=== PATIENT | male | born 1995 | race Caucasian/White ===

== ENCOUNTER 2019-06-11 17:39 | Day surgery (SDC) | payer BC ==
[2019-06-11] MEDS ORDERED: Sodium Chloride 0.9% 10 ML Syringe FLUSH PRN (19:03)
[2019-06-11] MEDS ORDERED: Sodium Chloride 0.9% 1,000 ML IV ONE (19:05)
--- NOTE | 2019-06-11 19:22 | EDM.PDOC ---
ED HPI GENERAL MEDICAL PROBLEM - General Chief Complaint: Abdominal Pain Stated Complaint: ABDOMINAL PAIN Time Seen by Provider: 06/11/19 18:21 Source of Information: Reports: Patient, RN Notes Reviewed History Limitations: Reports: No Limitations - History of Present Illness INITIAL COMMENTS - FREE TEXT/NARRATIVE: Patient is a 24-year-old male who presents to the ED for the evaluation of right -sided abdominal pain. The patient notes that this pain started at around 3 AM this morning. She notes that the pain started just above his bellybutton, and has now settled into his right lower quadrant. He did go to the walk-in clinic for evaluation, and they did an ultrasound and some lab work, but told him there was nothing wrong. Patient states he still not been able to eat or drink much throughout the day. He denies any fevers or chills, he has a little bit of nausea, but no vomiting or diarrhea, his last good bowel movement was around 3 AM this morning. He states that the abdominal pain has been there all day, and worsens with deep breathing and/or moving. He notes that the pain does feel worse now than it was earlier today. He notes the pain to be sharp and stabbing in nature, but a dull ache is there at all times. He states that he also feels bloated, and this is not normal for him. He denies any sort of abdominal surgeries. He states his last meal was a bowl of cereal at around 11 AM this morning. Patient notes that he is a social drinker, but denies any cigarette or other drug use. Patient's ultrasound report from [facility] demonstrated a positive sonographic Jasmine sign, but no signs of cholecystitis metabolic panel was remotely unremarkable, he had a mildly elevated glucose of 116. Lipase was done and was within normal limits. White blood cell count was mildly elevated at 11.4, with 9.4 (82.6%) neutrophils noted, this was done by manual differential. He denies any history of heartburn, GERD, or ulcers, but states that he has had lots of belching today as well. Right Upper Abdominal Pain Score (Numeric/FACES): 7 - Related Data Allergies Allergy/AdvReac Type Severity Reaction Status Date / Time No Known Allergies Allergy Verified 06/11/19 18:14 Home Meds: Home Meds . [No Known Home Meds] 06/11/19 [History] Social & Family History - Tobacco Use Smoking Status *Q: Never Smoker - Caffeine Use Caffeine Use: Reports: Coffee, Energy Drinks, Soda, Tea - Recreational Drug Use Recreational Drug Use: No ED ROS GENERAL - Review of Systems Review Of Systems: See Below Constitutional: Reports: Decreased Appetite. Denies: Fever, Chills HEENT: Reports: No Symptoms Respiratory: Denies: Shortness of Breath, Cough Cardiovascular: Denies: Chest Pain Endocrine: Reports: No Symptoms GI/Abdominal: Reports: Abdominal Pain (RLQ), Decreased Appetite, Nausea. Denies : Black Stool, Bloody Stool, Constipation, Diarrhea, Vomiting : Denies: Dysuria, Flank Pain, Frequency, Urgency Musculoskeletal: Reports: No Symptoms Skin: Reports: No Symptoms Neurological: Reports: No Symptoms Psychiatric: Reports: No Symptoms ED EXAM, GI/ABD - Physical Exam Exam: See Below Exam Limited By: No Limitations General Appearance: Alert, WD/WN, No Apparent Distress Eyes: Bilateral: Normal Appearance, EOMI Throat/Mouth: Normal Inspection, Normal Lips, Normal Teeth, Normal Gums, Normal Oropharynx, Normal Voice, No Airway Compromise Head: Atraumatic Neck: Normal Inspection Respiratory/Chest: No Respiratory Distress, Lungs Clear, Normal Breath Sounds, No Accessory Muscle Use, Chest Non-Tender Cardiovascular: Normal Peripheral Pulses, Regular Rate, Rhythm, No Edema, No Murmur GI/Abdominal Exam: Normal Bowel Sounds, Soft, No Distention (pt feels bloated, but has obese body habitus, and is hard to appreciate any sort of obvious abdominal distension.), No Mass, Tender (RLQ, McBurney point positive, Jasmine sign negative). No: Rigid, Rebound Extremities: Normal Inspection, Normal Capillary Refill Neurological: Alert, Oriented, Normal Cognition, No Motor/Sensory Deficits Psychiatric: Normal Affect, Normal Mood Skin Exam: Warm, Dry, Intact, Normal Color, No Rash Course - Vital Signs Last Recorded V/S: Last Vital Signs Temp 98.2 F 06/11/19 18:09 Pulse 82 06/11/19 18:09 Resp 18 06/11/19 18:09 BP 137/73 06/11/19 18:09 Pulse Ox 99 06/11/19 18:09 - Orders/Labs/Meds Orders: Active Orders 24 hr Category Date Time Status Notify Provider Consults [RC] ASDIRECTED Care 06/11/19 21:03 Ordered Peripheral IV Care [RC] . DIRECTED Care 06/11/19 19:03 Ordered Consult to Physician [CONS] Stat Cons 06/11/19 21:01 Ordered Sodium Chloride 0.9% [Saline Flush] Med 06/11/19 19:03 Ordered 10 ml FLUSH ASDIRECTED PRN Peripheral IV Insertion Adult [OM.PC] Routine Oth 06/11/19 19:03 Ordered Medication Orders Sodium Chloride (Saline Flush) 10 ml FLUSH ASDIRECTED PRN PRN Reason: Keep Vein Open Last Admin: 06/11/19 19:20 Dose: 10 ml Labs: Laboratory Tests 06/11/19 Range/Units 19:18 Urine Color Light yellow (Yellow) Urine Appearance Clear (Clear) Urine pH 7.5 (5.0-8.0) Ur Specific [place] 1.020 (1.005-1.030) Urine Protein Negative (Negative) Urine Glucose (UA) Negative (Negative) Urine Ketones Negative (Negative) Urine Occult Blood Negative (Negative) Urine Nitrite Negative (Negative) Urine Bilirubin Negative (Negative) Urine Urobilinogen 0.2 (0.2-1.0) Ur Leukocyte Esterase Negative (Negative) Urine RBC 0-5 (0-5) /hpf Urine WBC 0-5 (0-5) /hpf Ur Squamous Epith Cells 0-5 (0-5) /hpf Urine Bacteria Few (FEW) /hpf Urine Mucus Not seen (FEW) /hpf Meds: Medications Generic Name Dose Route Start Last Admin Trade Name Freq PRN Reason Stop Dose Admin Sodium Chloride 10 ml 06/11/19 19:03 06/11/19 19:20 Saline Flush FLUSH 10 ml ASDIRECTED PRN Administration Keep Vein Open Discontinued Medications Generic Name Dose Route Start Last Admin Trade Name Freq PRN Reason Stop Dose Admin Diatrizoate Meglum/Diatrizoate Sod 120 ml 06/11/19 19:35 06/11/19 20:27 Gastrografin 37% PO 06/11/19 19:36 120 ml ONETIME ONE Administration Sodium Chloride 1,000 mls @ 500 mls/hr 06/11/19 19:05 06/11/19 19:20 Normal Saline IV 06/11/19 21:04 500 mls/hr ONETIME ONE Administration Piperacillin Sod/Tazobactam 100 mls @ 200 mls/hr 06/11/19 21:07 06/11/19 21: 20 Sod 4.5 gm/ Sodium Chloride IV 06/11/19 21:36 200 mls/hr ONETIME ONE Administration Iopamidol 100 ml 06/11/19 19:34 06/11/19 20:27 Isovue-300 (61%) IVPUSH 06/11/19 19:35 100 ml ONETIME ONE Administration - Re-Assessments/Exams Free Text/Narrative Re-Assessment/Exam: 06/11/19 19:26 Patient presents to the ED for the evaluation of right lower quadrant abdominal pain. He states the pain is worsening, not getting much better. I did offer to do an abdominal CT, and he would like a CT done to rule out appendicitis versus anything else that might be more worrisome. I did also order urinalysis for evaluation. I will not reorder labs at this time, as stated in the HPI, patient's white blood cell count is mildly elevated with 9.4 (82.6%) neutrophils , which could suggest a left shift. 06/11/19 21:[address] is resulted, and demonstrates an appendix is mildly prominent in size at 1.1 cm. The mall inflammatory change around the appendix. Findings are suspicious for very early appendicitis. Also a small hiatal hernia with no additional abnormality seen on the CT study was appreciated. Dr. Guajardo, surgeon professional nursing assistant is in surgery, and has been notified to come to the ER for evaluation of this patient when he is done. I will start him on IV Zosyn for initial management. 06/11/19 22:06 Dr. Guajardo is out of surgery, and is in to evaluate the patient at this time. Departure - Departure Time of Disposition: 21:05 Disposition: DC/Tfer to [facility] Condition: Fair Clinical Impression: Appendicitis Qualifiers: Appendicitis type: acute appendicitis Acute appendicitis type: with localized peritonitis Appendicitis gangrene presence: without gangrene Appendicitis perforation presence: without perforation Appendicitis abscess presence: without abscess Qualified Code(s): K35.30 - Acute appendicitis with localized peritonitis, without perforation or gangrene - Discharge Information *PRESCRIPTION DRUG MONITORING PROGRAM REVIEWED*: No *COPY OF PRESCRIPTION DRUG MONITORING REPORT IN PATIENT FIDE: No Referrals: PCP,None [Primary Care Provider] - Forms: ED Department Discharge - My Orders Last 24 Hours: My Active Orders 06/11/19 19:03 Peripheral IV Care [RC] . DIRECTED Sodium Chloride 0.9% [Saline Flush] 10 ml FLUSH ASDIRECTED PRN Peripheral IV Insertion Adult [OM.PC] Routine 06/11/19 21:01 Consult to Physician [CONS] Stat 06/11/19 21:03 Notify Provider Consults [RC] ASDIRECTED - Assessment/Plan Last 24 Hours: My Active Orders 06/11/19 19:03 Peripheral IV Care [RC] . DIRECTED Sodium Chloride 0.9% [Saline Flush] 10 ml FLUSH ASDIRECTED PRN Peripheral IV Insertion Adult [OM.PC] Routine 06/11/19 21:01 Consult to Physician [CONS] Stat 06/11/19 21:03 Notify Provider Consults [RC] ASDIRECTED
[2019-06-11] MEDS ORDERED: Iopamidol 612 MG/ML 100 ML Bottle IVPUSH ONE (19:34)
[2019-06-11] MEDS ORDERED: Diatrizoate Meglumine/Diatrizoate Sodium 37% 120 ML Bottle PO ONE (19:35)
--- NOTE | 2019-06-11 20:53 | CT ---
CT abdomen and pelvis Technique: Multiple axial sections were obtained from above the dome of the diaphragm inferiorly through the pubic symphysis. Intravenous and oral contrast was given. Delayed images were obtained through the bladder. Comparison: No prior abdominal imaging. Findings: Visualized lung bases show nothing acute. Liver contains no focal abnormality. Spleen appears within normal limits. Small hiatal hernia is noted. Adrenal glands show no nodule. Pancreas appears within normal limits. Gallbladder contains no calcified gallstones. Kidneys show symmetric contrast enhancement without hydronephrosis or mass. Aorta shows no aneurysm. No retroperitoneal adenopathy or mesenteric abnormalities are seen. No pelvic mass or adenopathy is seen. Appendix is mildly prominent in size at 1.1 cm. There may be minimal inflammatory change around the appendix. Findings are suspicious for very early appendicitis. No other inflammatory change is seen. No free fluid is seen. Delayed images shows contrast within the distal ureters and within the bladder. Bone window settings were reviewed which appear within normal limits for the patient's age. Impression: 1. Mildly prominent appendix with very slight surrounding inflammatory change suggesting very early appendicitis. 2. Small hiatal hernia with no additional abnormality being seen on CT study of the abdomen and pelvis. Diagnostic code #5
[2019-06-11] MEDS ORDERED: Piperacillin/Tazobactam 4.5 GM in Sodium Chloride 0.9% 100 ML IV ONE (21:07)
--- NOTE | 2019-06-11 22:25 | PCM.CONS ---
H&P History of Present Illness - General Date of Service: 06/11/19 Source of Information: Patient History Limitations: Reports: No Limitations - History of Present Illness Initial Comments - Free Text/Narative: Patient started having periumbilical abdominal pain at 3 am today. The pain worsened during the day. it was 7/10. associated with nausea. He went to walk in clinic where work up for gallbladder was negative and the patient was discharged. The pain worsened and the patient presented to the ED where the Ct a /p revealed acute appendicitis. Onset of Symptoms: Reports: Today Duration of Symptoms: Reports: Getting Worse Location: Reports: Abdomen Quality: Reports: Sharp Severity: Severe Improves with: Reports: Immobilization Worsens with: Reports: Movement Associated Symptoms: Reports: Nausea/Vomiting Right Upper Abdominal Pain Score (Numeric/FACES): 7 - Related Data Allergies/Adverse Reactions: Allergies Allergy/AdvReac Type Severity Reaction Status Date / Time No Known Allergies Allergy Verified 06/11/19 18:14 Home Medications: Home Meds . [No Known Home Meds] 06/11/19 [History] Social & Family History - Tobacco Use Smoking Status *Q: Never Smoker - Caffeine Use Caffeine Use: Reports: Coffee, Energy Drinks, Soda, Tea - Recreational Drug Use Recreational Drug Use: No H&P Review of Systems - Review of Systems: Review Of Systems: See Below General: Reports: No Symptoms HEENT: Reports: No Symptoms Pulmonary: Reports: No Symptoms Cardiovascular: Reports: No Symptoms Gastrointestinal: Reports: Abdominal Pain Genitourinary: Reports: No Symptoms Musculoskeletal: Reports: No Symptoms Skin: Reports: No Symptoms Psychiatric: Reports: No Symptoms Neurological: Reports: No Symptoms Exam - Exam Exam: See Below - Vital Signs Vital Signs: Last Vital Signs Temp 98.2 F 06/11/19 18:09 Pulse 82 06/11/19 18:09 Resp 18 06/11/19 18:09 BP 137/73 06/11/19 18:09 Pulse Ox 99 06/11/19 18:09 Weight: 158.757 kg - Exam General: Alert, Oriented, Cooperative, Mild Distress HEENT: Conjunctiva Clear Lungs: Clear to Auscultation, Normal Respiratory Effort Cardiovascular: Regular Rate, Regular Rhythm, Normal S1, Normal S2 GI/Abdominal Exam: Soft, No Distention, No Mass, Tender (RLQ) (Male) Exam: No Hernia - Patient Data Lab Results Last 24 hrs: Laboratory Results - last 24 hr 06/11/19 Range/Units 19:18 Urine Color Light yellow (Yellow) Urine Appearance Clear (Clear) Urine pH 7.5 (5.0-8.0) Ur Specific [place] 1.020 (1.005-1.030) Urine Protein Negative (Negative) Urine Glucose (UA) Negative (Negative) Urine Ketones Negative (Negative) Urine Occult Blood Negative (Negative) Urine Nitrite Negative (Negative) Urine Bilirubin Negative (Negative) Urine Urobilinogen 0.2 (0.2-1.0) Ur Leukocyte Esterase Negative (Negative) Urine RBC 0-5 (0-5) /hpf Urine WBC 0-5 (0-5) /hpf Ur Squamous Epith Cells 0-5 (0-5) /hpf Urine Bacteria Few (FEW) /hpf Urine Mucus Not seen (FEW) /hpf Consult PN Assessment/Plan Procedures: Procedures COMPLETE CBC W/AUTO DIFF WBC (12/29/17) COMPREHEN METABOLIC PANEL (12/29/17) GLYCOSYLATED HEMOGLOBIN TEST (12/29/17) ROUTINE VENIPUNCTURE (12/29/17) X-RAY EXAM OF FOOT (03/23/15) Problem List Initiated/Reviewed/Updated: No Plan: Acute appendicitis. I recommended appendectomy. I discussed with the patient risks, benefits and alternatives. Risks discussed include but not limited to injury to the rest of the adjacent structures, bleeding, infection, wound complications, reaction to medications. The patient agreed to proceed and informed consent was obtained. We will plan for laparoscopic appendectomy, possible open.
[2019-06-11] MEDS ORDERED: Lidocaine 1% 30 ML SDV ONE (22:49)
--- NOTE | 2019-06-11 22:56 | PCM.PREANE ---
Preanesthetic Assessment - Anesthesia/Transfusion/Family Hx Anesthesia History: No Prior Anesthesia Family History of Anesthesia Reaction: No Transfusion History: No Prior Transfusion(s) Intubation History: Unknown - Review of Systems General: No Symptoms Pulmonary: No Symptoms Cardiovascular: No Symptoms Gastrointestinal: No Symptoms Neurological: No Symptoms Other: Reports: None - Physical Assessment NPO Status Date: 06/11/19 NPO Status Time: 11:00 Vital Signs: Last Vital Signs Temp 98.2 F 06/11/19 18:09 Pulse 82 06/11/19 18:09 Resp 18 06/11/19 18:09 BP 137/73 06/11/19 18:09 Pulse Ox 99 06/11/19 18:09 Height: 1.83 m Weight: 158.757 kg ASA Class: 2E Mental Status: Alert & Oriented x3 Airway Class: Mallampati = 2 Dentition: Reports: Normal Dentition Thyro-Mental Finger Breadths: 3 Mouth Opening Finger Breadths: 3 ROM/Head Extension: Full Lungs: Clear to Auscultation Cardiovascular: Regular Rate - Lab Values: Laboratory Last Values Urine Color Light yellow (Yellow) 06/11/19 19:18 Urine Appearance Clear (Clear) 06/11/19 19:18 Urine pH 7.5 (5.0-8.0) 06/11/19 19:18 Ur Specific [place] 1.020 (1.005-1.030) 06/11/19 19:18 Urine Protein Negative (Negative) 06/11/19 19:18 Urine Glucose (UA) Negative (Negative) 06/11/19 19:18 Urine Ketones Negative (Negative) 06/11/19 19:18 Urine Occult Blood Negative (Negative) 06/11/19 19:18 Urine Nitrite Negative (Negative) 06/11/19 19:18 Urine Bilirubin Negative (Negative) 06/11/19 19:18 Urine Urobilinogen 0.2 (0.2-1.0) 06/11/19 19:18 Ur Leukocyte Esterase Negative (Negative) 06/11/19 19:18 Urine RBC 0-5 /hpf (0-5) 06/11/19 19:18 Urine WBC 0-5 /hpf (0-5) 06/11/19 19:18 Ur Squamous Epith Cells 0-5 /hpf (0-5) 06/11/19 19:18 Urine Bacteria Few /hpf (FEW) 06/11/19 19:18 Urine Mucus Not seen /hpf (FEW) 06/11/19 19:18 - Allergies Allergies/Adverse Reactions: Allergies Allergy/AdvReac Type Severity Reaction Status Date / Time No Known Allergies Allergy Verified 06/11/19 18:14 - Anesthesia Plan Pre-Op Medication Ordered: None - Acknowledgements Anesthesia Type Planned: General Anesthesia Pt an Appropriate Candidate for the Planned Anesthesia: Yes Alternatives and Risks of Anesthesia Discussed w Pt/Guardian: Yes Pt/Guardian Understands and Agrees with Anesthesia Plan: Yes PreAnesthesia Questionnaire Respiratory History: Reports: Sleep Apnea (apparent but undiagnosed) Endocrine/Metabolic History: Reports: Obesity/BMI 30+ (Morbid Obesity BMI 47.5) - SUBSTANCE USE Smoking Status *Q: Never Smoker Recreational Drug Use History: No - HOME MEDS Home Medications: Home Meds . [No Known Home Meds] 06/11/19 [History] - CURRENT (IN HOUSE) MEDS Current Meds: Current Medications Sodium Chloride (Saline Flush) 10 ml FLUSH ASDIRECTED PRN PRN Reason: Keep Vein Open Last Admin: 06/11/19 19:20 Dose: 10 ml Discontinued Medications Diatrizoate Meglum/Diatrizoate Sod (Gastrografin 37%) 120 ml PO ONETIME ONE Stop: 06/11/19 19:36 Last Admin: 06/11/19 20:27 Dose: 120 ml Sodium Chloride (Normal Saline) 1,000 mls @ 500 mls/hr IV ONETIME ONE Stop: 06/11/19 21:04 Last Admin: 06/11/19 19:20 Dose: 500 mls/hr Piperacillin Sod/Tazobactam (Sod 4.5 gm/ Sodium Chloride) 100 mls @ 200 mls/hr IV ONETIME ONE Stop: 06/11/19 21:36 Last Admin: 06/11/19 21:20 Dose: 200 mls/hr Iopamidol (Isovue-300 (61%)) 100 ml IVPUSH ONETIME ONE Stop: 06/11/19 19:35 Last Admin: 06/11/19 20:27 Dose: 100 ml Lidocaine HCl (Xylocaine-Mpf 1%) Confirm Administered Dose 30 ml .ROUTE .STK- MED ONE Stop: 06/11/19 22:50
[2019-06-11] MEDS ORDERED: cefOXitin 1 GM in Premix Bag 1 BAG IV ONE (23:02)
[2019-06-11] MEDS ORDERED: Rocuronium 50 MG/5 ML Vial ONE (23:04)
[2019-06-11] MEDS ORDERED: Propofol 200 MG/20 ML SDV ONE ×2 (23:04→23:07)
[2019-06-11] MEDS ORDERED: Midazolam 1 MG/ML 2 ML SDV ONE (23:04)
[2019-06-11] MEDS ORDERED: fentaNYL 250 MCG/5 ML SDV ONE (23:05)
[2019-06-11] MEDS ORDERED: Lidocaine 1% 6 ML ONE (23:08)
[2019-06-11] MEDS ORDERED: Succinylcholine/Normal Saline 100 MG/5 ML Syringe ONE ×2 (23:22→23:37)
[2019-06-11] MEDS ORDERED: Phenylephrine/Normal Saline 100 MCG/ML 10 ML Syringe ONE (23:37)
[2019-06-11] MEDS ORDERED: Ondansetron 4 MG/2 ML SDV ONE (23:42)
[2019-06-11] MEDS ORDERED: Lactated Ringers 1,000 ML ONE ×2 (23:55)
[2019-06-12] MEDS ORDERED: Neostigmine Methylsulfate 1 MG/ML 5 ML Syringe ONE (00:24)
[2019-06-12] MEDS ORDERED: Meperidine 50 MG/ML Vial ONE (00:42)
[2019-06-12] MEDS ORDERED: HYDROmorphone 0.5 MG/0.5 ML Syringe IVPUSH PRN (00:48)
[2019-06-12] MEDS ORDERED: Prochlorperazine 10 MG/2 ML SDV IVPUSH PRN (00:48)
[2019-06-12] MEDS ORDERED: fentaNYL 100 MCG/2 ML SDV IVPUSH PRN (00:48)
--- NOTE | 2019-06-12 00:52 | PCM.POSTAN ---
POST ANESTHESIA ASSESSMENT - MENTAL STATUS Mental Status: Somnolent - VITAL SIGNS Vital Signs: Last Vital Signs Temp 98.2 F 06/11/19 18:09 Pulse 82 06/11/19 18:09 Resp 18 06/11/19 18:09 BP 137/73 06/11/19 18:09 Pulse Ox 99 06/11/19 18:09 POSTOP VSS 108/67, HR 87 98.5 F, SAT 96% RR 24 - RESPIRATORY Respiratory Status: Respiratory Rate WNL, Airway Patent, O2 Saturation Stable, Supplemental Oxygen - CARDIOVASCULAR CV Status: Pulse Rate WNL, Blood Pressure Stable - GASTROINTESTINAL GI Status: No Symptoms - PAIN Pain Score: 0 - POST OP HYDRATION Hydration Status: Adequate & Stable
--- NOTE | 2019-06-12 01:18 | OR ---
DATE OF OPERATION: 06/11/2019 SURGEON: Tomás Guajardo MD PREOPERATIVE DIAGNOSIS: Acute appendicitis. POSTOPERATIVE DIAGNOSIS: Acute appendicitis. OPERATION PERFORMED: Laparoscopic appendectomy. ANESTHESIA: General endotracheal. ESTIMATED BLOOD LOSS: 5 mL. FLUIDS: About 1 L. URINE OUTPUT: 50 mL. FINDINGS: Inflamed appendix. INDICATIONS AND CONSENT: The patient is a 24-year-old male who had onset of periumbilical pain this morning. The patient was evaluated in the walk-in clinic and discharged home due to negative findings. The patient returned to the emergency department with increasing pain, now localized to right lower quadrant. CT scan revealed acute appendicitis. I discussed with the patient the risks, benefits, and alternatives to appendectomy. The patient agreed to proceed with appendectomy. DESCRIPTION OF PROCEDURE: The patient was taken to the operating room, placed on the operating room table in supine position. Following induction of general endotracheal anesthesia, preop antibiotics consisting of cefoxitin were provided. SCDs were placed to bilateral lower extremities, and the patient was appropriately padded. Then, abdominal hair was clipped. The patient was prepped and draped in the usual sterile fashion. A formal time-out was performed prior to the start of the procedure. We began the procedure by making an infraumbilical incision, and the abdomen was accessed with a Veress needle through this incision, and the abdomen was insufflated to 15 mmHg. Then, an Optiview trocar was placed in the abdomen under direct visualization using a 10/30 scope. Then, the abdomen was inspected. There were no immediate injuries. Then, 2 additional 5 mm trocars were placed, 1 in the suprapubic position and 1 in the left lower quadrant, and the patient was positioned in the reverse Trendelenburg position. Then 2 graspers were used to find the appendix. The appendix was elevated, inflamed, and adhesions to the appendix were released bluntly. The appendix was lifted anteriorly. A wound was made at the base of the appendix, and a 45 mm blue load was used to transect the appendix using Endo-RAPHAEL stapler, and 2 loads of 40 mm white aj were used to transect the mesoappendix using the same Endo-RAPHAEL stapler. Then the appendix was placed in the EndoCatch bag. The area was inspected. The hemostasis was ensured. A small amount of saline was used to irrigate the area and suctioned out. At this point, the abdomen is desufflated. Trocars were removed under direct visualization and then the infraumbilical fascia was closed with 0 Vicryl stitches, and skin at all incision sites were closed with 4-0 Monocryl stitches. Dermabond was applied. This marked the end of the procedure. At the end of the procedure, all instruments, sharps, and sponges were counted and found to be correct x2. The patient was awoken from general anesthesia, extubated, and taken to the PACU in stable condition. The plan is for the patient to stay overnight and go home tomorrow. The patient to come in clinic in 2 weeks to see me for postop check. JOSE ROBERTO /[id number]
[2019-06-12] MEDS ORDERED: Ketorolac 30 MG/ML SDV IVPUSH PRN (02:26)
[2019-06-12] MEDS: Acetaminophen/oxyCODONE 325-5 MG Tab PO PRN ×2 (02:57→08:44)
--- NOTE | 2019-06-12 11:17 | PCM48HPAN ---
Post Anesthesia Note - EVALUATION WITHIN 48HRS OF ANESTHETIC Vital Signs in Normal Range: Yes Patient Participated in Evaluation: Yes Respiratory Function Stable: Yes Airway Patent: Yes Cardiovascular Function Stable: Yes Hydration Status Stable: Yes Pain Control Satisfactory: Yes Nausea and Vomiting Control Satisfactory: Yes Mental Status Recovered: Yes Vital Signs: Last Vital Signs Temp 36.6 C 06/12/19 08:20 Pulse 90 06/12/19 09:21 Resp 18 06/12/19 08:20 BP 135/70 06/12/19 08:20 Pulse Ox 95 06/12/19 09:21 - COMMENTS/OBSERVATIONS Free Text/Narrative:: Late Entry: Patient discharged prior to anesthesia able to visit. Nurses state patient status met criteria to be discharged.
== END 2019-06-12 09:40 | disposition home or self-care (01) ==
LOC: JD.ED 17:39 → JD.SDS 22:42 → JD.MS 06-12 02:00 → JD.SDS 06-12 09:40
PROVIDERS: ATTEND Surgery
DX: K35.80 Unspecified acute appendicitis (principal)
CPT/HCPCS: 44970; 74177; 81001; 94760; 96360; 96361; 99285; A9270; J0330; J0694; J2001; J2175; J2250; J2370; J2405; J2543; J2704; J2710; J3010; J7030; J7040; J7120; Q9963; Q9967; 00840